=== PATIENT | female | born 1990 | race Caucasian/White ===

== ENCOUNTER 2017-01-16 17:36 | Emergency (ER) | payer BC ==
[~2017-01-16] VITALS: Wt 85.0 kg
[2017-01-16 19:48] LABS: URINE BLOOD (Dip) POC Trace-intact (NEGATIVE)
[2017-01-16] MEDS ORDERED: morphine 2 MG INJ IV STA (20:06)
[2017-01-16] MEDS ORDERED: SOD CHLORIDE 0.9% 1,000 ML IV STA (20:06)
[2017-01-16] MEDS ORDERED: ONDANSETRON 4 MG INJ IV STA ×2 (20:06→21:37)
--- NOTE | 2017-01-16 20:14 | ERD ---
ER Documentation Chief Complaint Date/Time DATE: 01/16/17 TIME: 20:12 Chief Complaint RIGHT LOWER QUAD PAIN W/ PALPITATION, CRAMPING/NAUSEA/CRAVEN/DIZZY X4DAYS HPI Patient is a 26-year-old female here with mother who presents to the ED with right lower quadrant tenderness, nausea and dizziness for the last 4 days. She states that she went to her primary care doctor today, Dr. Cristian LONG who sent her here to the ER concerned about possible appendicitis. She stated that her symptoms developed on Friday where she had nonbloody nonbilious emesis. She has not had any vomiting episodes since but states that she is nauseous. She also states that she has a decrease in energy. She had a fever today at the clinic but has not had fever since. She states that she has a decrease in appetite but is tolerating fluids and had lunch today. Her last bowel movement was this morning. She denies diarrhea. She has not taken any medication for her symptoms. ROS All systems reviewed and are negative except as per history of present illness. Medications Home Meds Active Scripts Ondansetron Hcl* (Zofran*) 4 Mg Tablet, 4 MG PO Q6H for NAUSEA AND/OR VOMITING, #30 TAB Prov:MONTSERRAT WADSWORTH PA-C 01/16/17 PMhx/Soc Medical and Surgical Hx: pt denies Surgical Hx History of Surgery: No Anesthesia Reaction: No Hx Neurological Disorder: No Hx Respiratory Disorders: No Hx Cardiac Disorders: No Hx Psychiatric Problems: Yes (ANXIETY) Hx Miscellaneous Medical Probl: Yes (BILAT OVARIAN CYST ) Hx Alcohol Use: No Hx Substance Use: No Hx Tobacco Use: No Smoking Status: Never smoker Physical Exam Vitals Vital Signs Date Time Temp Pulse Resp B/P Pulse Ox O2 Delivery O2 Flow Rate FiO2 01/16/17 17:57 99.1 78 18 138/80 97 Physical Exam GENERAL: Well-developed, well-nourished female. Appears in no acute distress. HEAD: Normocephalic, atraumatic. EYES: Pupils are equally reactive bilaterally. EOMs grossly intact. No conjunctival erythema. ENT: Moist mucous membranes. No uvula deviation. No kissing tonsils. No exudates. NECK: Supple. No lymphadenopathy or thyromegaly. No meningismus. negative kernig. negative brudinski. LUNG: Clear to auscultation bilaterally. No rhonchi, wheezing, rales or coarse breath sounds. HEART: Regular rate and rhythm. No murmurs, rubs or gallops. ABDOMEN: No scars, ecchymosis or rashes noted. Soft, nontender, and nondistended. Positive bowel sounds in all four quadrants. No rebound tenderness , no guarding. Positive McBurney's point tenderness. no CVA tenderness. BACK: No midline tenderness. Extremities: Equal pulses bilaterally. No peripheral clubbing, cyanosis or edema. No unilateral leg swelling. NEUROLOGIC: Alert and oriented. Moving all four extremities. 5/5 strength in all extremities. Normal speech. Steady gait. SKIN: Normal color. Warm and dry. No rashes or lesions. Capillary refill < 2 seconds Result Diagram: 01/16/17201101/16/172011 Results 24 hrs Laboratory Tests Test 01/16/17 19:44 01/16/17 19:49 01/16/17 20:12 Urine Color LT. YELLOW Urine Clarity CLEAR Urine pH 6.0 Urine Specific [place] 1.015 Urine Ketones NEGATIVE Urine Nitrite NEGATIVE Urine Bilirubin NEGATIVE Urine Urobilinogen 0.2 E.U./dL Urine Leukocyte Esterase NEGATIVE Urine Hemoglobin NEGATIVE Urine Glucose NEGATIVE% Urine Total Protein NEGATIVE Bedside Urine pH (LAB) 6.5 Bedside Urine Protein (LAB) Negative Bedside Urine Glucose (UA) Negative Bedside Urine Ketones (LAB) Negative Bedside Urine Blood Trace-intact Bedside Urine Nitrite (LAB) Negative Bedside Urine Leukocyte Esterase (L Negative White Blood Count 7.510^3/ul Red Blood Count 4.2510^6/ul Hemoglobin 14.1g/dl Hematocrit 39.2% Mean Corpuscular Volume 92.2fl Mean Corpuscular Hemoglobin 33.2pg Mean Corpuscular Hemoglobin Concent 36.0g/dl Red Cell Distribution Width 11.4% Platelet Count 91013^3/UL Mean Platelet Volume 9.5fl Neutrophils % 56.5% Lymphocytes % 36.3% Monocytes % 5.2% Eosinophils % 0.9% Basophils % 0.7% Nucleated Red Blood Cells % 0.0/100WBC Neutrophils # 4.210^3/ul Lymphocytes # 2.710^3/ul Monocytes # 0.410^3/ul Eosinophils # 0.110^3/ul Basophils # 0.110^3/ul Nucleated Red Blood Cells # 0.010^3/ul Sodium Level 139mmol/L Potassium Level 3.7mmol/L Chloride Level 100mmol/L Carbon Dioxide Level 27mmol/L Anion Gap 16 Blood Urea Nitrogen 10mg/dl Creatinine 0.91mg/dl Glucose Level 84mg/dl Calcium Level 9.7mg/dl Total Bilirubin 0.5mg/dl Direct Bilirubin 0.00mg/dl Indirect Bilirubin 0.5mg/dl Aspartate Amino Transf (AST/SGOT) 25IU/L Alanine Aminotransferase (ALT/SGPT) 24IU/L Alkaline Phosphatase 52IU/L Total Protein 8.5g/dl Albumin 4.8g/dl Globulin 3.70g/dl Albumin/Globulin Ratio 1.29 Lipase 109U/L Current Medications Medications (Trade) Dose Ordered Sig/Sandra Route PRN Reason Start Time Stop Time Status Last Admin Dose Admin Sodium Chloride (NS) 1,000 ml @ 1,000 mls/hr Q1H STAT IV 01/16/17 20:06 01/16/17 21:05 DC 01/16/17 20:15 Morphine Sulfate (morphine) 2 mg ONCE STAT IV 01/16/17 20:06 01/16/17 20:08 DC 01/16/17 20:15 Ondansetron HCl 4 mg 4 mg ONCE STAT IV 01/16/17 20:06 01/16/17 20:08 DC 01/16/17 20:15 Sodium Chloride (NS) 1,000 ml @ 1,000 mls/hr Q1H ONCE IV 01/16/17 22:00 01/16/17 22:59 01/16/17 21:52 Ondansetron HCl (Zofran Inj) 4 mg ONCE STAT IV 01/16/17 21:37 01/16/17 21:38 DC Procedures/MDM ER COURSE: I kept the patient and/or family informed of laboratory and diagnostic imaging results throughout the emergency room course. EKG, MONITORS, & DIAGNOSTIC IMAGING: [place] [id number] Radiology Main Line: [phone] DIAGNOSTIC IMAGING REPORT Patient: SULEIMAN KAYE : 1990 Age: 26 Sex: F MR #: [id number] DOS: 01/16/172013 Ordering MD: MONTSERRAT WADSWORTH PA-C Location: [facility] Room/Bed: PROCEDURE: US Pelvis. CLINICAL INDICATION: Pelvic pain, right lower quadrant TECHNIQUE: Multiple sonographic images of the pelvis were obtained utilizing a transabdominal and endovaginal technique. The images were reviewed on a PACS workstation. COMPARISON: None available FINDINGS: Uterus: Normal in size, contour and echogenicity with no evidence for myometrial masses. Size is estimated at 7.6 x 5.7 x 3.8 cm. Cervix: No abnormalities of significance are seen. Endometrium: Normal in thickness; 9.9 mm. Right ovary / adnexa: Normal in size estimated at 3.1 x 2.2 x 2.2 cm. No evidence for masses, normal blood flow on Doppler interrogation. Left ovary/adnexa: The ovary is not visualized. There is no evidence of adnexal mass Cul-de-sac: No evidence of free fluid. RPTAT:HJJR IMPRESSION: Nonvisualization of the left ovary, otherwise unremarkable pelvic ultrasound. Physician Bebeto Date Time Electronically viewed and signed by Physician Bebeto on 01/16/2017 21:52 JR/ CC: MONTSERRAT WADSWORTH PA-C [place] [id number] Radiology Main Line: [phone] DIAGNOSTIC IMAGING REPORT Patient: SULEIMAN KAYE : 1990 Age: 26 Sex: F MR #: [id number] DOS: 01/16/172005 Ordering MD: MONTSERRAT WADSWORTH PA-C Location: [facility] Room/Bed: PROCEDURE: CT Abdomen and Pelvis without contrast. CLINICAL INDICATION: Right lower quadrant pain rule out appendicitis TECHNIQUE: CT scan of the abdomen and pelvis without contrast was performed on a multidetector high-resolution CT scanner. The patient was scanned without intravenous contrast. Coronal and sagittal reformatted images were obtained from the axial source images. Images were reviewed on a high-resolution PACS workstation. The total exam CTDI equals 13.04 mGy and the total exam DLP equals 734.18 mGy-cm. One or more the following dose reduction techniques were utilized: Automated exposure control, adjustment of the mA/ or kV according to patient's size, or use of iterative reconstruction technique. COMPARISON: Pelvic ultrasound of 01/16/[address] abdomen and pelvis without contrast of 11/28/2015 FINDINGS: CT abdomen: Minimal dependent atelectasis in posterior lower lungs. The heart size is normal , without pericardial thickening or effusion. The liver is normal in size and density without focal mass or intrahepatic biliary dilatation. The spleen is normal in size and homogeneous in density. The stomach is partially collapsed, but is grossly unremarkable. The pancreas as visualized is normal. The gallbladder and biliary tree are unremarkable and there is no evidence for biliary dilatation. The adrenal glands are symmetric and normal. The kidneys are symmetrically unremarkable as well. No renal calculus or obstructive uropathy or mass lesion is seen. The aorta is of normal caliber. There is no retroperitoneal lymphadenopathy. The jewels hepatis region is clear. The bowel and mesentery, as visualized, are unremarkable. CT pelvis: The small bowel loops situated within the pelvis are unremarkable. The pelvic organs are normal. The pelvic sidewalls and inguinal regions are clear. The sigmoid colon and rectum are unremarkable. No mass, lymphadenopathy, or free fluid is seen. No acute inflammation is seen. There is an approximate 1.6 x 1.3 cm central fluid density structure anterior to the anterior superior aspect of the bladder decreased in size compared to previous study which could represent a urachal remnant. There is an unremarkable appendix. The surrounding osseous structures are unremarkable. No osteolytic or osteoblastic lesion is detected. IMPRESSION: 1.6 x 1.3 cm central fluid density structure anterior to the anterior superior aspect of the bladder decreased in size compared to previous study which could represent a urachal remnant. Unremarkable appendix. No evidence of acute appendicitis. RPTAT: HJES .Homero James MD, MD Date Time Electronically viewed and signed by .Homero James MD, on 01/16/2017 22:00 .S/ CC: MONTSERRAT WADSWORTH PA-C MEDICATIONS: IV fluids, Zofran, morphine. Tolerated well with no adverse reaction. Stated improvement in symptoms. LAB INTERPRETATION: CBC showed no evidence of systemic infection or severe anemia. CMP showed no evidence of electrolyte abnormalities, severe acidosis, alkalosis, renal failure , or liver disease. Lipase showed no evidence of acute pancreatitis. UA showed no evidence of leukocytes, nitrites or hematuria. Urine test was negative. MEDICAL DECISION MAKING: This is a 26-year-old who presents with abdominal pain 2 days. Vital signs were reviewed. Patient is afebrile. Patient is not hypoxic. Patient is not toxic. Patient has abdominal pain of unknown etiology. A CT scan was ordered per her primary care orders. CT scan is read by radiologist is unremarkable for abdominal emergency. Low suspicion for ACS, AAA, perforated ulcer, bowel obstruction, cholecystitis, choledocholithiasis, cholangitis, pancreatitis, hepatic abscess, appendicitis, diverticulitis, gastroenteritis, hepatitis, peptic ulcer disease, HELLP syndrome. Low suspicion for ovarian torsion, PID, tuboovarian abscess, ectopic , bowel obstruction, pyelonephritis, UTI, appendicitis, cervicitis, septic , molar , HELLP syndrome, preeclampsia, eclampsia, placenta previa, placenta abruptia. I reexamined patient after administration of medication and fluids. Patient stated slight improvement in her symptoms. She was ready to go home. DISCHARGE: At this time, patient is stable for discharge and outpatient management with no new complaints during the ER course. Patient was sent home with Jensenan for nausea and to follow-up with her primary care in 2 days. A note for work was also given.. Patient will be discharged home with instructions to recheck for new or worsening symptoms such as fever, nausea, weakness, LOC and to follow up with primary care in the next 1-2 days. Patient was advised to return to the ER for any new or worsening symptoms. Plan was discussed and patient and/or family understands and agrees. Home instructions were given. Departure Diagnosis: Primary Impression: Abdominal pain Abdominal location: right lower quadrant Qualified Code: R10.31 - Right lower quadrant abdominal pain Condition: Stable MONTSERRAT WADSWORTH PA-C Jan 16, 2017 20:14
[2017-01-16 20:29] LABS: ADD SCAN DIFF NO
[2017-01-16 20:34] LABS: BASOPHIL # 0.1 10^3/ul (0.0-0.1); BASOPHILS % 0.7 % (0.0-2.0); EOSINOPHILS # 0.1 10^3/ul (0.0-0.5); EOSINOPHILS % 0.9 % (0.0-7.0); HEMATOCRIT 39.2 % (37.0-47.0); HEMOGLOBIN 14.1 g/dl (12.0-16.0); LYMPHOCYTES # 2.7 10^3/ul (0.8-2.9); LYMPHOCYTES % 36.3 % (15.0-51.0); MEAN CORPUSCULAR HEMOGLOBIN 33.2 pg (29.0-33.0); MEAN CORPUSCULAR VOLUME 92.2 fl (82.0-101.0); MEAN PLATELET VOLUME 9.5 fl (7.4-10.4); MONOCYTE # 0.4 10^3/ul (0.3-0.9); MONOCYTES % 5.2 % (0.0-11.0); NEUTROPHIL # 4.2 10^3/ul (1.6-7.5); NEUTROPHILS % 56.5 % (39.0-77.0); PLATELET COUNT 228 10^3/UL (140-415); RED BLOOD COUNT 4.25 10^6/ul (4.20-5.40); RED CELL DISTRIBUTION WIDTH 11.4 % (11.5-14.5); WHITE BLOOD COUNT 7.5 10^3/ul (4.8-10.8)
[2017-01-16 20:36] LABS: ADD UMIC NO; URINE BILIRUBIN (Dip) NEGATIVE (NEGATIVE); URINE BLOOD (Dip) NEGATIVE (NEGATIVE); URINE COLOR LT. YELLOW (YELLOW); URINE GLUCOSE (Dip) NEGATIVE (NEGATIVE); URINE KETONES (Dip) NEGATIVE (NEGATIVE); URINE LEUKOCYTE ESTERASE (Dip) NEGATIVE (NEGATIVE); URINE NITRITE (Dip) NEGATIVE (NEGATIVE); URINE TOTAL PROTEIN (Dip) NEGATIVE (NEGATIVE); URINE UROBILINOGEN (Dip) 0.2 E.U./dL (0.1-1.0)
[2017-01-16 20:59] LABS: ALBUMIN 4.8 g/dl (3.3-4.9); POTASSIUM 3.7 mmol/L (3.5-5.1)
[2017-01-16 21:01] LABS: CREATININE 0.91 mg/dl (0.44-1.00)
[2017-01-16 21:02] LABS: ALBUMIN/GLOBULIN RATIO 1.29; BILIRUBIN,INDIRECT 0.5 mg/dl (0-1.1); BILIRUBIN,TOTAL 0.5 mg/dl (0.2-1.3); CALCIUM 9.7 mg/dl (8.4-10.2); TOTAL PROTEIN 8.5 g/dl (6.1-8.1)
--- NOTE | 2017-01-16 21:52 | RADRPT ---
PROCEDURE: US Pelvis. CLINICAL INDICATION: Pelvic pain, right lower quadrant TECHNIQUE: Multiple sonographic images of the pelvis were obtained utilizing a transabdominal and endovaginal technique. The images were reviewed on a PACS workstation. COMPARISON: None available FINDINGS: Uterus: Normal in size, contour and echogenicity with no evidence for myometrial masses. Size is est imated at 7.6 x 5.7 x 3.8 cm. Cervix: No abnormalities of significance are seen. Endometrium: Normal in thickness; 9.9 mm. Right ovary / adnexa: Normal in size estimated at 3.1 x 2.2 x 2.2 cm. No evidence for masses, norm al blood flow on Doppler interrogation. Left ovary/adnexa: The ovary is not visualized. There is no evidence of adnexal mass Cul-de-sac: No evidence of free fluid. RPTAT:HJJR IMPRESSION: Nonvisualization of the left ovary, otherwise unremarkable pelvic ultrasound. Physician Bebeto Date Time Electronically viewed and signed by Physician Bebeto on 01/16/2017 21:52 JR/
[2017-01-16] MEDS ORDERED: SOD CHLORIDE 0.9% 1,000 ML IV ONE (22:00)
--- NOTE | 2017-01-16 22:01 | RADRPT ---
PROCEDURE: CT Abdomen and Pelvis without contrast. CLINICAL INDICATION: Right lower quadrant pain rule out appendicitis TECHNIQUE: CT scan of the abdomen and pelvis without contrast was performed on a multidetector hig h-resolution CT scanner. The patient was scanned without intravenous contrast. Coronal and sagittal reformatted images were obtained from the axial source images. Images were reviewed on a high-resol [place] PACS workstation. The total exam CTDI equals 13.04 mGy and the total exam DLP equals 734.18 mG y-cm. One or more the following dose reduction techniques were utilized: Automated exposure control, adjus tment of the mA/ or kV according to patient's size, or use of iterative reconstruction technique. COMPARISON: Pelvic ultrasound of 01/16/[address] abdomen and pelvis without contrast of 11/28/19 16 FINDINGS: CT abdomen: Minimal dependent atelectasis in posterior lower lungs. The heart size is normal, without pericardia l thickening or effusion. The liver is normal in size and density without focal mass or intrahepati c biliary dilatation. The spleen is normal in size and homogeneous in density. The stomach is part ially collapsed, but is grossly unremarkable. The pancreas as visualized is normal. The gallbladde r and biliary tree are unremarkable and there is no evidence for biliary dilatation. The adrenal gl ands are symmetric and normal. The kidneys are symmetrically unremarkable as well. No renal calcul us or obstructive uropathy or mass lesion is seen. The aorta is of normal caliber. There is no retroperitoneal lymphadenopathy. The jewels hepatis r egion is clear. The bowel and mesentery, as visualized, are unremarkable. CT pelvis: The small bowel loops situated within the pelvis are unremarkable. The pelvic organs are normal. T he pelvic sidewalls and inguinal regions are clear. The sigmoid colon and rectum are unremarkable. No mass, lymphadenopathy, or free fluid is seen. No acute inflammation is seen. There is an approx imate 1.6 x 1.3 cm central fluid density structure anterior to the anterior superior aspect of the b ladder decreased in size compared to previous study which could represent a urachal remnant. There i s an unremarkable appendix. The surrounding osseous structures are unremarkable. No osteolytic or osteoblastic lesion is detect ed. IMPRESSION: 1.6 x 1.3 cm central fluid density structure anterior to the anterior superior aspect of the bladder decreased in size compared to previous study which could represent a urachal remnant. Unremarkable appendix. No evidence of acute appendicitis. RPTAT: HJES .Homero James MD, Date Time Electronically viewed and signed by .Homero James MD, on 01/16/2017 22:00 .S/
[2017-01-16] MEDS ORDERED: ONDA4TAB8 PO (22:14)
[2017-01-16 22:26] VITALS: BP 109/63; PULSE 67; RESP 18; TEMP 98.4
== END 2017-01-16 22:26 | disposition home or self-care (01) ==
LOC: FTE 17:36
DX: R10.31 Right lower quadrant pain (principal); R11.0 Nausea; R10.2 Pelvic and perineal pain
CPT/HCPCS: 36415; 74176; 76830; 76856; 80053; 81003; 83690; 85025; 96374; 96375; 99285; J2270; J2405; J7030